=== PATIENT | female | born 1985 ===

== ENCOUNTER 2020-01-16 11:40 | Observation (INO) ==
[2020-01-16 12:43] LABS: Bilirubin,Urine Negative (Negative); Blood,Urine Moderate (Negative); Clarity,Urine Cloudy (Clear); Color,Urine Yellow (Yellow); Glucose,Urine (UA) Normal (Normal); Ketones,Urine Negative (Negative); Leukocyte Esterase,Urine Large (Negative); Nitrite,Urine Negative (Negative); Protein,Urine Negative (Neg-Trace); Urobilinogen,Urine Normal (Normal)
[2020-01-16 12:46] LABS: Bacteria,Urine None Seen per hpf (None-Few); Hyaline Casts,Urine None Seen per lpf (None-Few); Squamous Epithelial Cell,Urine Many per lpf (None-Few); WBC,Urine 30-50 per hpf (0-3)
[2020-01-16 12:53] LABS: Basophils # 0.1 K/mcL (0.0-0.2); Basophils % 0.6 %; Eosinophils # 0.2 K/mcL (0.0-0.6); Eosinophils % 1.6 %; Hematocrit 47.4 % (35.3-44.9); Hemoglobin 15.4 g/dL (11.5-15.4); Immature Granulocytes % 0.6 % (0-4); Lymphocytes # 4.5 K/mcL (0.6-4.6); Lymphocytes % 36.5 %; Mean Corpuscular HGB Conc 32.5 g/dL (31.6-35.5); Mean Corpuscular Hemoglobin 30.2 pg (28.0-33.3); Mean Corpuscular Volume 92.9 fL (83.0-100.0); Mean Platelet Volume 11.1 fL (9.4-12.4); Monocytes # 0.8 K/mcL (0.0-1.3); Monocytes % 6.7 %; Neutrophils # 6.7 K/mcL (1.6-8.9); Platelet Count 291 K/mcL (140-400); Red Cell Distribution Width 12.4 % (11.5-14.5); White Blood Count 12.4 K/mcL (4.3-11.1)
[2020-01-16 13:06] LABS: BUN/Creatinine Ratio 24 (6-26); Blood Urea Nitrogen 17 mg/dL (6-20); Calcium 9.3 mg/dL (8.6-10.3); Carbon Dioxide 24 mEq/L (23-29); Chloride 105 mEq/L (98-107); Glucose 80 mg/dL (70-105); Osmolality,Calculated 281 (280-300); Sodium 135 mEq/L (136-145); eGFR For African Americans > 60 (> 60); eGFR For Non-African Americans > 60 (> 60)
[2020-01-16] MEDS ORDERED: Ketorolac 30 MG/ML VIAL IVP ONE (14:09)
[2020-01-16] MEDS ORDERED: *HR* HYDROmorphone (PF) 1 MG/ML SYRINGE IVP ONE (14:09)
[2020-01-16] MEDS ORDERED: *HR* Promethazine 25 MG/ML VIAL IVP ONE (14:09)
[2020-01-16] MEDS ORDERED: 0.9 % Sodium Chloride 1,000 ML IVC ONE ×2 (14:11→15:37)
[2020-01-16] MEDS ORDERED: cefTRIAXone 1,000 MG in Water for inj. (sterile) 10 ML IVP ONE (15:37)
[2020-01-16] MEDS ORDERED: Ondansetron 4 MG/2 ML VIAL IVP PRN (17:12)
[2020-01-16] MEDS ORDERED: Naloxone 0.4 MG/ML INJ IVP PRN (17:12)
[2020-01-16] MEDS ORDERED: Acetaminophen 325 MG TABLET PO PRN (17:12)
[2020-01-16] MEDS: *HR* HYDROmorphone (PF) 1 MG/ML SYRINGE IVP PRN (19:23)
[2020-01-16] MEDS: Ringers Solution, Lactated 1,000 ML IVC SCH (19:23)
[2020-01-16] MEDS: Ketorolac 15 MG/ML VIAL IVP PRN (23:14)
[2020-01-17] MEDS: *HR* HYDROmorphone (PF) 1 MG/ML SYRINGE IVP PRN ×6 (02:54→15:33)
[2020-01-17] MEDS: Ondansetron 4 MG/2 ML VIAL IVP PRN ×2 (02:55→09:11)
[2020-01-17] MEDS ORDERED: *HR* Enoxaparin 40 MG/0.4 ML SYRINGE SQ SCH (06:00)
[2020-01-17] MEDS: Ketorolac 15 MG/ML VIAL IVP PRN (06:05)
[2020-01-17] MEDS: Ringers Solution, Lactated 1,000 ML IVC SCH (06:06)
[2020-01-17 07:17] LABS: BUN/Creatinine Ratio 29 (6-26); Blood Urea Nitrogen 21 mg/dL (6-20); Calcium 8.8 mg/dL (8.6-10.3); Carbon Dioxide 21 mEq/L (23-29); Chloride 108 mEq/L (98-107); Glucose 99 mg/dL (70-105); Osmolality,Calculated 285 (280-300); Potassium 4.5 mEq/L (3.5-5.1); Sodium 136 mEq/L (136-145); eGFR For African Americans > 60 (> 60); eGFR For Non-African Americans > 60 (> 60)
[2020-01-17 08:29] LABS: Basophils # 0.1 K/mcL (0.0-0.2); Basophils % 0.5 %; Eosinophils # 0.2 K/mcL (0.0-0.6); Eosinophils % 1.6 %; Hematocrit 41.4 % (35.3-44.9); Hemoglobin 13.2 g/dL (11.5-15.4); Immature Granulocytes % 0.4 % (0-4); Lymphocytes # 3.6 K/mcL (0.6-4.6); Mean Corpuscular HGB Conc 31.9 g/dL (31.6-35.5); Mean Corpuscular Hemoglobin 30.2 pg (28.0-33.3); Mean Corpuscular Volume 94.7 fL (83.0-100.0); Mean Platelet Volume 11.5 fL (9.4-12.4); Monocytes # 0.8 K/mcL (0.0-1.3); Neutrophils # 6.6 K/mcL (1.6-8.9); Platelet Count 243 K/mcL (140-400); Red Blood Count 4.37 M/mcL (3.82-4.97); Red Cell Distribution Width 12.3 % (11.5-14.5); Segmented Neutrophils % 58.5 %; White Blood Count 11.4 K/mcL (4.3-11.1)
[2020-01-17] MEDS ORDERED: cefTRIAXone 2,000 MG in Water for inj. (sterile) 20 ML IVP SCH (09:00)
[2020-01-17] MEDS ORDERED: *HR* Midazolam HCl 2 MG/2 ML VIAL ONE (13:05)
[2020-01-17] MEDS ORDERED: *HR* FentaNYL (PF) 100 MCG/2 ML VIAL ONE (13:05)
[2020-01-17] MEDS ORDERED: Ondansetron 4 MG/2 ML VIAL ONE (13:06)
[2020-01-17] MEDS ORDERED: Dexamethasone 4 MG/ML VIAL ONE (13:06)
[2020-01-17] MEDS ORDERED: *HR* Propofol 200 MG/20 ML VIAL IVP ONE (13:06)
[2020-01-17] MEDS ORDERED: Lidocaine -MPF 2% 2 ML VIAL ONE (13:06)
[2020-01-17] MEDS ORDERED: Ondansetron 4 MG/2 ML VIAL IVP PRN ×3 (14:18→16:04)
[2020-01-17] MEDS ORDERED: *HR* Labetalol 20 MG/4 ML SYRINGE IVP PRN ×2 (14:18→16:04)
[2020-01-17] MEDS ORDERED: *HR* Promethazine 25 MG/ML VIAL IVP PRN ×2 (14:18→16:04)
[2020-01-17] MEDS ORDERED: Metoclopramide 10 MG/2 ML VIAL ONE (15:04)
[2020-01-17] MEDS ORDERED: Ketorolac 15 MG/ML VIAL IVP PRN (16:04)
[2020-01-17] MEDS ORDERED: *HR* HYDROmorphone (PF) 1 MG/ML SYRINGE IVP PRN ×2 (16:04)
[2020-01-17] MEDS ORDERED: Acetaminophen 325 MG TABLET PO PRN (16:04)
[2020-01-17] MEDS ORDERED: Naloxone 0.4 MG/ML INJ IVP PRN (16:04)
[2020-01-17 18:06] VITALS: BP 98/58
[2020-01-18] MEDS ORDERED: *HR* Enoxaparin 40 MG/0.4 ML SYRINGE SQ SCH (06:00)
[2020-01-18] MEDS ORDERED: cefTRIAXone 2,000 MG in Water for inj. (sterile) 20 ML IVP SCH (09:00)
== END 2020-01-17 19:24 | disposition home or self-care (01) ==
LOC: EMEROOARM 11:40 → 3ANU 11:40
PROVIDERS: ADMIT Internal Medicine; ATTEND Internal Medicine